=== PATIENT | female | born 1985 | race Caucasian/White ===

== ENCOUNTER 2024-12-01 12:27 | Inpatient (IN) | payer OTHER, SELFPAY ==
[2024-12-01] VITALS (14 sets, daily range): BP systolic 98–136; BP diastolic 60–91; BMI 22.2
[2024-12-01 08:54] LABS: % Basophils 0.1 % (0-2); % Eosinophils 0.1 % (0-6); % Immature Granulocytes 0.3 % (0-0.5); % Lymphocytes 12.4 % (20.5-51.1); % Monocytes 4.7 % (1.7-9.3); % Neutrophils 82.4 % (42.2-75.2); Absolute Lymphocytes 0.9 10^3/uL (1.2-3.4); Absolute Monocytes 0.3 10^3/uL (0.1-0.6); Hematocrit 39.3 % (37.0-47.0); Mean Corp Hgb Conc. 33.1 g/dL (33.0-37.0); Mean Corpuscular Hgb 29.7 pg (27.0-31.0); Mean Corpuscular Volume 89.7 fL (81.0-99.0); Mean Platelet Volume 10.4 fL (7.4-10.4); Nucleated Red Blood Cells % 0 %; Platelet Count 178 10^3/uL (130-400); Red Blood Cell Count 4.38 10^6/uL (4.20-5.40); Red Cell Dist. Width 12.7 % (11.5-14.5); White Blood Cell Count 7.3 10^3/uL (4.8-10.8)
[2024-12-01 09:09] LABS: HCG, Serum Qualitative Screen Negative
[2024-12-01 09:12] LABS: ALT (SGPT) 23 U/L (0-35); AST (SGOT) 31 U/L (14-36); Albumin 4.4 g/dl (3.5-5.0); Alkaline Phosphatase 55 U/L (38-126); Blood Urea Nitrogen 10 mg/dl (7-17); Carbon Dioxide 26 mmol/L (22-30); Chloride 103 mmol/L (98-107); Glucose 115 mg/dl (70-99); Potassium 3.9 mmol/L (3.5-5.1); Sodium 137 mmol/L (135-145); Total Bilirubin 0.5 mg/dl (0.2-1.3); Total Protein 7.2 g/dl (6.3-8.2); eGFR > 60.00
--- NOTE | 2024-12-01 09:17 | ED.GENMED ---
History of Present Illness
General
Chief Complaint: Chest Pain
Time Seen by Provider: 12/01/24 09:00
History of Present Illness
History of Present Illness:
Patient is a 39-year-old woman who is otherwise healthy presenting to the emergency department chest pain. Patient states that she woke up at 4 AM with chest tightness that she thought was a muscular pain and she needed to stretch out her chest.
She was laying when it occurred and sat up in bed to help stretch the chest. She then developed some dizziness nausea and a small amount of emesis. She states that her symptoms resolved and she called her primary care doctor who told her to come
to the emergency department for further evaluation. She denies any history of exertional chest pain or chest pain in general. No family history of cardiac disease. She does not smoke or vape. No history of high blood pressure cholesterol
diabetes. Her last period was a week ago. She does have reflux though this does not feel similar. She does state that her whole household did have a stomach bug a few weeks ago
Phy Exam
Physical Exam
Physical Exam:
GENERAL: in no acute distress
HEENT: normocephalic, extraocular movements intact, moist oral mucosa
NECK: normal inspection
RESPIRATORY: no respiratory distress, clear to auscultation bilaterally
CARDIOVASCULAR: regular rate and rhythm, 2+ radial pulses
ABDOMEN/: soft, non-distended, non-tender to palpation, no rebound or guarding
EXTREMITIES: non-tender, no edema/swelling
NEUROLOGIC: awake and alert, moves all extremities
SKIN: warm
Scores
Heart Score for Chest Pain Patients
STEMI patient?: No
History: Slightly or Non-Suspicious
ECG: Normal
Age: </= 45 years
Risk Factors: No Risk Factors
Troponin: >/= 3 x Normal Limit
Heart Score for Chest Pain Patients: 2
Heart Score Risk: 2.5% MACE over next 6 weeks
Course
Orders/Labs/Results
Orders:
Orders
12/01/24 08:34
Electrocardiogram (*1) Urgent
Reason for Study: Chest Pain
EKG- Treatment ONCE
12/01/24 08:42
Test Result ONCE
12/01/24 08:45
Complete Blood Count/With Diff Urgent
Comprehensive Metabolic Panel Urgent
HCG, Serum Qualitative Screen Urgent
TSH Reflex To Free T4 Urgent
Troponin I Urgent
12/01/24 09:14
CR Chest - 2 Views Urgent
Comment:
Reason For Exam: chest pain
12/01/24 09:21
EKG- Treatment ONCE
12/01/24 09:42
PTT Urgent
Comment: Obtain baseline before beginning heparin infusion if not already collected
Aspirin Chewable [Low Strength Aspirin] 324 mg PO NOW STA
Heparin 4,000 units IV NOW STA
Pharmacy Request to Place See Dose Instructions PO NOW STA
Discontinue all Active Warfarin orders?: Yes
Nursing to Place Non Medication Order As Directed
Physician Order: PTT 6 hours after initial start of Heparin infusion
12/01/24 09:45
Heparin 97413 Units/250 ml 25,000 units in 250 ml IV PER PROTOCOL
Weight to be used for heparin protocol in kilograms (kg):: 70.1
Protocol:: Cardiac Tx/Acute Coronary
PTT Goal Range to be used:: PTT 73 to 111 seconds
Order type:: Initial
INITIAL Infusion Dose (UNITS/KG/hr) & then follow protocol:: 15 units/kg/hr
Infusion Dose in UNITS/hr & then follow protocol (UNITS/hr):: 1,050
INFUSION RATE in mL/hr & then follow protocol (mL/hr):: 10.5
PTT less than or equal to 64 seconds:: Increase rate by 200 units/hr (+ 2 mL/hr)
PTT 64.1 to 72.9 seconds:: Increase rate by 100 units/hr (+ 1 mL/hr)
PTT 73 to 111 seconds:: Target Range. No change in rate.
PTT 111.1 to 130.9 seconds:: Decrease rate by 100 units/hr (- 1 mL/hr)
PTT 131 to 199.9 seconds:: HOLD for 1 hr. Then decrease rate by 200 units/hr (- 2 mL/hr)
PTT greater than or equal to 200 seconds:: HOLD for 2 hrs & Notify Provider. Then decrease by 200 units/hr (-
2 mL/hr)
Lab follow-up:: Each change, PTT q6h until 2 consecutive are therapeutic. Then PTT
daily.
12/01/24 10:[address] See Dose Instructions IV DIRECTED
12/01/24 11:45
Electrocardiogram (*1) Urgent
Reason for Study: Chest Pain
Troponin I Urgent
Abnormal Lab Results
12/01/24
08:45
Absolute Lymphs (auto) 0.9 L 10^3/uL
(1.2-3.4)
Neutrophils % 82.4 H %
(42.2-75.2)
Lymphocytes % 12.4 L %
(20.5-51.1)
Glucose 115 H mg/dl
(70-99)
Troponin I 0.189 H* ng/ml
12/01/24 08:45
12/01/24 08:45
Vital Signs
Initial and Last Documented VS:
Initial Vital Signs
Temp Pulse Resp BP Pulse Ox
98.0 F 92 16 136/77 98
12/01/24 08:38 12/01/24 08:38 12/01/24 08:38 12/01/24 08:38 12/01/24 08:38
Last Documented Vital Signs
Temp Pulse Resp BP Pulse Ox
98.0 F 92 16 136/77 98
12/01/24 08:38 12/01/24 08:38 12/01/24 08:38 12/01/24 08:38 12/01/24 08:38
MDM/Problems Addressed
Differential Diagnosis Includes:
Patient is a 39-year-old woman presenting to the emergency department with chest pain that has since resolved. Vitals unremarkable and exam is reassuring. Unclear cause of patient's chest pain however could be ACS. Could be esophageal pathology.
History exam not consistent with PE or dissection or pericarditis. Will check blood work EKG and chest x-ray. Patient will need delta troponin.
*Critical Care Note
Total Time (30-74mins, 75-104mins- exclusive of procedures): 37
comment:
Critical care statement: A total of 37 minutes of critical care time was provided for this patient. This includes management of unstable vital signs, evaluation of the patient at bedside, reviewing the patient's pertinent medical records, ordering
and reviewing studies, arranging urgent treatment with development of a management plan, evaluating patient's response to treatment, frequent reassessment, and discussion with consultants. This time was separate from time utilized to perform the
aforementioned documented procedures.
Update Note
Update Note:
Chest x-ray per my interpretation with no widened mediastinum, no signs of pneumothorax or pneumonia.
Received a critical as patient's troponin is elevated at 0.189. On reassessment patient remains pain-free. Will give aspirin and start heparin drip. Discussed with frame hand (Dr Lindsey) who will evaluate patient. Discussed with hospitalist
accepted patient to their service
ED Attending Note
-
Portions of this chart may have been created with voice recognition software.� Occasional wrong word or��sound alike� substitutions may have occurred due to the inherent limitations of voice recognition software.
Discharge Plan
Departure
Patient Disposition: Admit
Date of Disposition: 12/01/24
Time of Disposition: 09:51
Presentation/result/management discussed w/ accepting MD/DO: Hospitalist
Discharge Problem:
Non-ST elevation IL (NSTEMI)
Referrals:
Cody Coburn CRNP [Family Provider] -
Interventions
Interventions:
*Risk Screen - Suicide Last Done: 12/01/24 08:38
*Neglect/Abuse Screening Last Done: 12/01/24 08:38
Discharge Date and Time
Print Language: ITALIAN
[2024-12-01 09:33] LABS: Troponin I 0.189 ng/ml
[2024-12-01] MEDS: LOW STRENGTH ASPIRIN 324 MG PO (10:17)
[2024-12-01 10:40] LABS: APTT 29.1 Sec (23.4-35.0)
--- NOTE | 2024-12-01 10:44 | CON.CAR ---
Consultation
Consultation Request
Date/Time Consultation Requested: 12/01/24
Date/Time Consultation Performed: 12/01/24
Requesting Provider: Dr. Grover
Performing Provider: Dr. Lindsey
Reason for Consultation: chest pain
Medical History
-
Chief Complaint: Chest pain
History of Present Illness:
I had the pleasure to meet your patient, Massiel Painter in ED room 24 after she presented at the behest of her family physician for evaluation of chest pain. Massiel is a 39-year-old female with a history of hypothyroidism diagnosed during a
on Synthroid replacement therapy. She does not have a history of Isi's or Graves' disease. She is otherwise relatively healthy without a history of hypertension, hyperlipidemia, diabetes/prediabetes/gestational diabetes, autoimmune
conditions, rheumatologic disorders thromboembolic disease and is a lifelong non-smoker. She is a P2002, both requiring IVF and complicated by severe preeclampsia with help features requiring delivery. She is a lifelong non-smoker. She
states her and her family had a GI illness which she feels that she has recovered. She denies upper respiratory symptoms, ongoing GI symptoms, fevers or rash. She denies extreme stress/emotional distress. She still has her menses and denies the
use of oral contraceptive pills and is not on fertility treatment. Family history negative for premature coronary artery disease, coronary artery disease, cardiomyopathy, arrhythmia, or sudden cardiac . Her father from esophageal
cancer. She woke up this morning around 4 AM with severe chest discomfort which felt like a band around her chest causing her to feel lightheaded and dizzy and felt extremely wiped out. She was also nauseous and had several dry heaves. Chest pain
lasted less than 30 minutes. The whole episode lasted about 45 minutes. She called her family physician who instructed her to come to the ER for evaluation. Currently she is feeling well and denies shortness of breath, palpitations,
lightheadedness, nausea, or abdominal pain. The chest pain she had earlier has resolved however she still has slight discomfort under her left shoulder. She denies increase of pain with cough, change position or deep inspiration.
Past medical history:
Hypothyroidism on replacement therapy, infertility requiring IVF, delivery x 2, pregnancies complicated by preeclampsia/help syndrome
Past Medical History
Past Medical History: Other (See HPI)
Past Surgical History: Other (See HPI)
Social History
Tobacco: Non-Smoker
Alcohol: None
Drug: None
Personal:
Living: With Family
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
Family History
Family History: Reviewed & Not Pertinent
Allergies / Home Medications
Allergy/AdvReac Type Severity Reaction Status Date / Time
No Known Allergies Allergy Verified 12/01/24 08:41
�Medication �Instructions �Recorded �Confirmed �Type
cholecalciferol (vitamin D3) 25 25 mcg PO DAILY 12/01/24 12/01/24 History
mcg (1,000 unit) tablet (Vitamin
D3)
cyanocobalamin (vitamin B-12) 1,000 mcg PO DAILY 12/01/24 12/01/24 History
1,000 mcg tablet
levothyroxine 75 mcg tablet 75 mcg PO DAILY 12/01/24 12/01/24 History
(Synthroid)
therapeutic multivitamin 1 tab PO DAILY 12/01/24 12/01/24 History
Review of Systems
-
History Source: Patient
All other systems: Negative unless noted
Constitutional: Sleep Disturbance
EENT: No Symptoms
Respiratory: No Symptoms
Cardiac: Chest Pain and Diaphoresis
Abdomen/GI: Nausea and Vomiting
Musculoskeletal: No Symptoms
Skin: Rash (She currently has an erythematous rash on her face, neck, chest and back which she states that she gets when she is nervous.)
Neurological: Dizzy and Weakness
Physical Exam
Vital Signs
Temp Pulse Resp BP Pulse Ox
98.0 F 92 16 136/77 98
12/01/24 08:38 12/01/24 08:38 12/01/24 08:38 12/01/24 08:38 12/01/24 08:38
Lab Results
12/01/24 08:45
12/01/24 08:45
Troponin I 0.189 ng/ml H* 12/01/24 08:45
Physical Exam
General: Well Developed, Well Nourished, No Apparent Distress and Comfortable
HEENT: Normocephalic, Anicteric and Moist Mucous Membranes
Respiratory: Clear
Cardiac: S1/S2 and Regular Rhythm; Negative Murmur, Rub, Peripheral Edema, Calf Tenderness or JVD
GI: Soft, Non Tender, Non Distended and Normal Bowel Sounds
Skin: Warm and Dry
Neuro: AO x 3 and Nonfocal/Grossly Intact
Psych: Calm
Impression / Plan
-
Impression:
Chest pain syndrome with elevated troponin, initial 0.189
Hypothyroidism
Recent viral GI illness
CXR: No acute cardiopulmonary abnormality
EKG sinus rhythm with poor R wave progression. No acute ischemic changes. Normal intervals
Plan:
Chest pain with abnormal cardiac troponins, unclear etiology
-Initial troponin 0.189
-Fortunately she is hemodynamically stable with mostly resolved symptoms and some residual left shoulder discomfort
-2D echocardiogram now
-Received aspirin 81 mg in the ED
-Blood pressure/heart rate slightly elevated, will give Lopressor 12.5 mg now
-Trend troponin
-Serial EKG
-Telemetry monitoring
-TSH within normal limits. test negative. LFTs within normal limits. Hemoglobin 13
-Pending 2D echocardiogram will decide further ischemic workup with possible left heart catheterization today
Hypothyroidism�TSH within normal limits on replacement therapy
Data Reviewed
-
EKG: Report Reviewed by me
Radiology: Report Reviewed by me
Labs: Labs Reviewed by me
[2024-12-01] MEDS: HEPARIN 25000 UNITS/250 ML IV (10:52)
[2024-12-01] MEDS: HEPARIN 4000 UNITS IV (10:54)
--- NOTE | 2024-12-01 12:48 | HPS.HSE ---
Family Physician
-
Family Physician: CAROLYN Ibrahim
Chief Complaint
-
chest pain
History of Present Illness
39 y/o F, hx of hypothyroidism presenting to ER with chest pain. Woke up at 4 AM today with severe chest discomfort which was band like around her chest causing her dizziness and lightheadedness. No association with deep inspiration or cough,
position. She felt wiped out. She had nausea and dry heaves. chest pain lasted 30 minutes at least. PCP instructed ER evaluation. At present reports some mild chest pain. no SOB, palpitations, no abd pain. No LE edema.
Seen by Cards in ER and planned for urgent cath today
Medical History
Past Medical History
Past Medical History: Reports Other (Hypothyroidism on replacement therapy, infertility requiring IVF, delivery x 2, pregnancies complicated by preeclampsia/help syndrome)
Past Surgical History: Reports None
Social History
Tobacco: Non-smoker
Alcohol: None
Drug: None
Personal:
Living: With Family
Employment: Employed
Family History
Family History: Not pertinent
Allergies / Home Medications
Allergies reflects when Allergies were last updated in [facility].
Home Medications with original date entered in [facility]
Allergy/Medication List:
Allergies
Allergy/AdvReac Type Severity Reaction Status Date / Time
No Known Allergies Allergy Verified 12/01/24 08:41
Home Medications
cholecalciferol (vitamin D3) 25 mcg (1,000 unit) tablet (Vitamin D3) 25 mcg PO DAILY 12/01/24
cyanocobalamin (vitamin B-12) 1,000 mcg tablet 1,000 mcg PO DAILY 12/01/24
levothyroxine 75 mcg tablet (Synthroid) 75 mcg PO DAILY 12/01/24
therapeutic multivitamin 1 tab PO DAILY 12/01/24
Review of Systems
-
A 12 point ROS was completed and negative except as noted: Yes
Physical Exam
Vital Signs
Vital Signs
Temp Pulse Resp BP Pulse Ox
98.0 F 88 13 117/91 100
12/01/24 08:38 12/01/24 11:00 12/01/24 11:00 12/01/24 10:01 12/01/24 11:00
Physical Exam
General: No Apparent Distress
HEENT: NormoCephalic and Anicteric
Respiratory: Clear; No Wheezes
Cardiac: S1/S2 and Regular Rhythm
GI: Non Distended
Neuro: AO x 3
Hematologic/Lymphatic: No Lymphadenopathy
Psych: Calm
Laboratory Results
-
12/01/24 08:45
12/01/24 08:45
Laboratory Results
APTT 29.1 Sec (23.4-35.0) 12/01/24 10:15
Total Bilirubin 0.5 mg/dl (0.2-1.3) 12/01/24 08:45
AST 31 U/L (14-36) 12/01/24 08:45
ALT 23 U/L (0-35) 12/01/24 08:45
Alkaline Phosphatase 55 U/L (38-126) 12/01/24 08:45
Troponin I 0.330 ng/ml H* D 12/01/24 12:01
Data Reviewed
-
Diagnostic Radiology: Report Reviewed by me
Lab Data: Labs Reviewed by me
Impression/Plan
-
Assessment:
acute chest pain
Troponin elevation, possible NSTEMI
- repeat trop .330
- serial EKG
- Echo pending
- continue ASA
- continue IV heparin - requires intensive monitoring of PTTs
- s/p Lopressor x 1
- Cath today
Hypothyroidism on replacement
DVT ppx: IV heparin
Code: Full
[2024-12-01 14:38] LABS: ACT-LR - POC 165 Seconds (116-155)
--- NOTE | 2024-12-01 16:31 | CM ---
spoke to pt in room, she is prev indep, lives with her husb in a 2 story home with 6 steps to enter. she denies any dc planning needs or dme's. plan is for dc to home when medically stable.
[2024-12-01] MEDS: TYLENOL 650 MG PO (16:52)
--- NOTE | 2024-12-01 17:15 | ITS.CL.CATH ---
[employer] Operator - Catheterization
Cardiac Catheterization
Procedure Report:
LEFT HEART CATHETERIZATION
Date of Procedure: December 01, 2024
Referring: Carri Lindsey
PROCEDURES:
1. Left heart catheterization, coronary angiogram.
2. Ultrasound-guided access
INDICATION: Concern for NSTEMI
ACCESS: Right radial artery, 6 Beninese sheath, under ultrasound guidance
Ultrasound was utilized for vascular access. The radial artery was visualized under ultrasound, and the vessel was patent and pulsatile. An image was stored permanently in the patient's medical record. Under direct ultrasound guidance, a 6 Beninese
sheath was inserted into the artery using a micropuncture kit through a modified Seldinger technique.
HEMODYNAMICS : (mmHg)
AO (s/d) : 107/68
LV (s/d) : 117/6
LVEDP : 19
CORONARY FINDINGS
DOMINANCE: Right
LEFT MAIN: Left main artery is a large-caliber vessel which gives rise to the left anterior descending artery and the left circumflex artery. Normal coronary artery.
LEFT ANTERIOR DESCENDING: The left anterior descending artery is a medium caliber vessel which gives rise to 1 major diagonal branch as it courses to the anterior interventricular groove towards the apex. Distal to apical LAD shows evidence of
spontaneous coronary artery dissection (SCAD), which is likely culprit of presenting ACS. Right to left collaterals to the apical LAD are noted.
CIRCUMFLEX: Left circumflex artery is a medium caliber vessel which gives rise to 1 major obtuse marginal branch and a left posterolateral branch, both of which are small to medium in caliber. There is minimal luminal irregularities.
RIGHT CORONARY ARTERY: The right coronary artery is a medium caliber, dominant vessel which gives rise to the right posterior descending artery and the right posterolateral system. Normal coronary artery. Right to left collaterals to the apical
LAD are noted.
SEDATION: 24 minutes of procedural sedation was utilized. An independent medical assistant prn was present to assist with and help manage the patient's level of consciousness and physiologic status.
RADIATION SUMMARY: Fluoro Time (min): 4.1, Dose (mGy): 143.87, DAP (Gy.cm2) : 13.44
Closure Device: Vascular band over right radial artery, 10 cc of air.
CONCLUSIONS
1. 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
2. Right to left collaterals are noted.
3. Elevated LVEDP at 19 mmHg
RECOMMENDATIONS
1. Daily baby aspirin along with beta-leslie. Monitor in the hospital for at least 24 to 48 hours for any recurrent symptoms
2. Aggressive management of cardiovascular risk factors.
3. Outpatient evaluation to rule out FMD.
4. Referral for outpatient cardiac rehab
Lucero Vasques MD, FACC, [facility]
[2024-12-01] MEDS: CRESTOR PO (18:30)
--- NOTE | 2024-12-01 18:58 | PTCARENOTE ---
Pt received post cardiac cath done via right radial artery. Radial band removed per protocol without problem, no sign of bleeding or hematoma. Pt c/o mild headache relieved with tylenol and 3/10 discomfort in her chest which she states feels like
heartburn. Pt states that she feels well overall. Telemetry shows sinus rhythm with one 8bt run of NSVT. Plan to monitor closely.
--- NOTE | 2024-12-01 21:19 | PTCARENOTE ---
Patient received at change of shift resting in the bed. Right radial cath site with gauze and tegaderm C/D/I, some ecchymosis noted, no evidence of hematoma. Sinus rhythm on telemetry with occasional PVCs. Patient states she has occasional
intermittent chest discomfort but states she has no pain at this time. She states that she overall feels better than when she was first admitted. Patient voided without difficulty. Oxygen saturation 96-97% on room air. Plan of care discussed. Call
oconnor within reach. Care ongoing.
[2024-12-02 03:23] VITALS: BP 109/71
[2024-12-02 04:13] LABS: Hematocrit 35.4 % (37.0-47.0); Hemoglobin 11.6 g/dL (12.0-16.0); Mean Corp Hgb Conc. 32.8 g/dL (33.0-37.0); Mean Corpuscular Hgb 29.6 pg (27.0-31.0); Mean Corpuscular Volume 90.3 fL (81.0-99.0); Mean Platelet Volume 10.9 fL (7.4-10.4); Platelet Count 160 10^3/uL (130-400); Red Blood Cell Count 3.92 10^6/uL (4.20-5.40); Red Cell Dist. Width 13.1 % (11.5-14.5); White Blood Cell Count 3.8 10^3/uL (4.8-10.8)
[2024-12-02 04:33] LABS: Blood Urea Nitrogen 8 mg/dl (7-17); Calcium 8.6 mg/dl (8.4-10.2); Carbon Dioxide 24 mmol/L (22-30); Chloride 107 mmol/L (98-107); Estimated Creatinine Clearance > 125 ml/min; Glucose 96 mg/dl (70-99); HDL Cholesterol 34 mg/dl; LDL Cholesterol, Calculated 83 mg/dl; Potassium 3.8 mmol/L (3.5-5.1); Sodium 138 mmol/L (135-145); Total Cholesterol 133 mg/dl (50-199); Triglyceride 84 mg/dl (10-149); Very Low Density Lipoprotein 16 mg/dl (0-30); eGFR > 60.00
[2024-12-02] MEDS: SYNTHROID 75 MCG PO (06:19)
[2024-12-02] MEDS: TYLENOL 650 MG PO (06:21)
[2024-12-02 06:46] VITALS: BP 100/65
--- NOTE | 2024-12-02 07:39 | W.PN.CARDCBS ---
Addendum entered and electronically signed by Ela Mendosa MD 12/02/24 11:43:
I saw and examined the patient.
The [facility]'s note was reviewed and I agree with the note.
Comment: Patient walking the hallways with very mild chest sensation. Admitted with non-Q wave myocardial infarction in the setting of SCAD (normal left ventricular ejection fraction). We reviewed cardiac catheterization with patient and her
mother, reviewed all medications. We reviewed outpatient evaluation for fibromuscular dysplasia and need for cardiac rehab. Telemetry with 1 asymptomatic short episode of of AVIR last night.
-Cardiac catheterization patient found to have SCAD involving the distal to apical LAD that is being medically managed.
-Outpatient CT full body to look for fibromuscular dysplasia. No known FH of any fibromuscular conditions
-New to Toprol XL and given increased heart rate as long as blood pressure tolerates increase dose to 37.5 mg daily.
-New to aspirin 81 mg daily
-LDL 83 and new to Crestor 20 mg daily
-Patient with known history of hypothyroidism and previous diagnosis of Graves' disease, TSH is normal and outpatient dose of Synthroid 75 mcg daily was continued
-Tele stable
-Importance of cardiac rehab reiterated
If remains stable discharge 12/03/2024
Original Note:
Today's Communication / Plan
-
New diagnosis of SCAD, tolerating medical therapy, will need outpatient CT to exclude FMD
Possible d/c to home if remains pain free
52 min in face to face and coordination of care
Impression / Plan
-
PCP: Temi WONG
Card: None prior to admission, seen initially by Dr. Lindsey
Impression:
ACS on admission 12/01/24
Type 2 GA, peak Troponin 1.4
SCAD involving distal to apical LAD seen on cardiac cath 12/01/2024
Hypothyroidism
Recent viral GI illness
Echo 12/01/2024: EF 70%, no significant valve disease, normal aortic root and proximal ascending aorta size, interatrial septum appears intact by color flow Doppler
Plan:
-Patient came to ER with CP and troponin peaked at 1.4 concerning for ACS. During cardiac catheterization patient found to have SCAD involving the distal to apical LAD that is being medically managed.
-Patient will need outpatient CT full body to look for fibromuscular dysplasia. No known FH of any fibromuscular conditions
-Patient is not taking any hormonal therapies
-New to Toprol XL 25 mg daily. HR 79 BP 100/65, but denies feeling lightheaded or dizzy
-New to aspirin 81 mg daily
-LDL 83 and new to Crestor 20 mg daily
-Patient with known history of hypothyroidism and previous diagnosis of Graves' disease, TSH is normal and outpatient dose of Synthroid 75 mcg daily was continued
-Tele reviewed by me 12/02/24 and no arrhythmia
-Possible discharge to home 12/02/2024
Progress Note - Kit Planner
Subjective
Date of Service: December 02, 2024
No chest pain, has a SMITH and has missed her morning coffee, but it's on the way now
Objective
Labs:
12/02/24 03:40
12/02/24 03:40
Labs
Hgb 11.6 g/dL (12.0-16.0) L 12/02/24 03:40
Hct 35.4 % (37.0-47.0) L 12/02/24 03:40
Plt Count 160 10^3/uL (130-400) 12/02/24 03:40
APTT Cancelled 12/01/24 16:50
Sodium 138 mmol/L (135-145) 12/02/24 03:40
Potassium 3.8 mmol/L (3.5-5.1) 12/02/24 03:40
BUN 8 mg/dl (7-17) 12/02/24 03:40
Creatinine 0.6 mg/dL (0.6-1.0) 12/02/24 03:40
Glucose 96 mg/dl (70-99) 12/02/24 03:40
Troponins
12/01/24 12/01/24 12/01/24
08:45 12:01 20:03
Troponin I 0.189 H* 0.330 H* D 1.400 H*
12/02/24
03:40
Troponin I 1.290 H*
Vital Signs and I&O:
Vital Signs
Temp Pulse Resp BP Pulse Ox
97.8 F 71 15 109/71 98
12/02/24 03:26 12/02/24 03:26 12/02/24 03:26 12/02/24 03:23 12/02/24 03:26
Vital Signs
Temp Pulse Resp BP Pulse Ox
97.8 F 71 15 109/71 98
12/02/24 03:26 12/02/24 03:26 12/02/24 03:26 12/02/24 03:23 12/02/24 03:26
Intake & Output
11/30/24 12/01/24 12/02/24 12/03/24
06:59 06:59 06:59 06:59
Intake Total 1340 / 1340
Balance 1340 / 1340
Physical Exam
Physical Exam
GEN: NAD. AAOx3
HEENT: EOMI, MMM
LUNGS: RA. No audible wheeze
CV: SR on tele. Reg, S1/S2, no murmur
ABD: soft, BS+, NT, ND
EXT: Right radial without hematoma or ecchymosis. No edema B/L
NEURO: Gross non-focal
SKIN: Warm, dry and pink. No rash
[2024-12-02 10:54] VITALS: BP 139/89
[2024-12-02] MEDS: TOPROL XL 37.5 MG PO (10:58)
[2024-12-02] MEDS: ASPIR LOW (ENTERIC COATED) 81 MG PO (10:58)
--- NOTE | 2024-12-02 13:57 | W.PN.HOSP.TC ---
Today's Communication/Plan
-
monitor chest pain symptoms
monitor tele
Assessment / Plan
Assessment / Plan
Assessment:
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
type 2 [place]
- trop peaked 1.400
- s/p cath 12/01
- continue ASA
- continue BB - titrated today
- continue statin
- OP fibromuscular dysplasia workup
- cardiac rehab
- follow [facility] recs
Hypothyroidism on replacement
brief AIVR on tele
DVT ppx: low risk, ambulation
Code: Full
Anticipated Discharge: Within 24 hours
Subjective/Interval History
-
Date of Service: December 02, 2024
some mild chest discomfort with ambulation earlier (before AM [employer])
currently chest pain free, ambulating with family in halls
Objective Data
-
Labs:
Laboratory Results
12/02/24
03:40
WBC 3.8 L
Hgb 11.6 L
Hct 35.4 L
Plt Count 160
Sodium 138
Potassium 3.8
Chloride 107
Carbon Dioxide 24
BUN 8
Creatinine 0.6
Glucose 96
Calcium 8.6
Vital Signs:
Vital Signs
Temp Pulse Resp BP Pulse Ox
98.3 F 87 18 139/89 100
12/02/24 10:56 12/02/24 11:00 12/02/24 10:56 12/02/24 10:54 12/02/24 10:56
I&O
12/01/24 12/02/24 12/03/24
06:59 06:59 06:59
Intake Total 1340 / 1340
Balance 1340 / 1340
Physical Exam
-
General: No Apparent Distress
HEENT: Normocephalic and Atraumatic
Cardiac: Regular Rhythm
GI: Soft
Genito-urinary: No Costovertebral Tender
Neuro: AO x 3
Hematologic / Lymphatic: No Lymphadenopathy
Psych: Calm
Data Reviewed
-
Total Time Spent with Patient (in minutes): 41
Labs: Labs Reviewed by me
[2024-12-02 15:30] VITALS: BP 117/79
[2024-12-02] MEDS: CRESTOR 20 MG PO (18:09)
[2024-12-02 18:36] VITALS: BP 109/70
--- NOTE | 2024-12-02 21:12 | PTCARENOTE ---
Patient received at change of shift resting in the bed. Patient presently denies chest pain, denies feeling lightheaded or dizzy. Sinus rhythm on telemetry. Oxygen saturation 97-98% on room air. Ambulating independently. Right radial puncture with
gauze and tegaderm C/D/I, ecchymosis noted but the surrounding area is soft to palpation. Discussed purpose and side effects of beta blockers, statins, and aspirin. Plan of care discussed with patient. Call oconnor within reach. Care ongoing.
[2024-12-02 22:51] VITALS: BP 95/59
[2024-12-03] VITALS (10 sets, daily range): BP systolic 101–118; BP diastolic 65–91
[2024-12-03 01:38] LABS: Hemoglobin 12.5 g/dL (12.0-16.0); Mean Corp Hgb Conc. 33.8 g/dL (33.0-37.0); Mean Corpuscular Volume 88.7 fL (81.0-99.0); Mean Platelet Volume 10.6 fL (7.4-10.4); Platelet Count 175 10^3/uL (130-400); Red Blood Cell Count 4.17 10^6/uL (4.20-5.40); Red Cell Dist. Width 12.9 % (11.5-14.5); White Blood Cell Count 4.6 10^3/uL (4.8-10.8)
--- NOTE | 2024-12-03 02:04 | W.PN.UPDATE ---
Update Note
Progress Note Update
Asked by RN to evaluate patient for 'weird' sensation in her chest radiating down the left arm and around to the left shoulder. She said her left hand has decreased sensation. No n/v. Pt stated it was not pain but described as weird tightness. BP
114/82, HR 60-70's, pulsox 99 on room air. When speaking with patient she described new left shoulder tightness and aching that is radiating down her left arm. She described her left arm as feeling heavy and numb.
TT Dr. Madhu Mendosa, who reviewed EKG. Troponin ordered. To advise if Troponin is rising compared to her last troponin. Also ordered repeat troponin and EKG for 6 am.
Patient states feeling is getting better. Ordered lidocaine patient in case muscular skeletal pain.
[2024-12-03 02:05] LABS: Blood Urea Nitrogen 11 mg/dl (7-17); Calcium 9.2 mg/dl (8.4-10.2); Carbon Dioxide 23 mmol/L (22-30); Chloride 103 mmol/L (98-107); Estimated Creatinine Clearance > 125 ml/min; Glucose 92 mg/dl (70-99); Potassium 4.1 mmol/L (3.5-5.1); Sodium 137 mmol/L (135-145); eGFR > 60.00
[2024-12-03] MEDS: LIDOCAINE 4% PATCH 1 PATCH TOPICAL (02:24)
[2024-12-03 02:29] LABS: Troponin I 0.591 ng/ml
--- NOTE | 2024-12-03 02:32 | PTCARENOTE ---
At approximately 0110 the patient alerted staff that she had a 'weird' feeling in her chest, pressure like in nature, that radiated to her left shoulder and down her left arm. She reported altered sensation in her left hand. These symptoms had
started about an hour ago and woke the patient from sleep. Radial pulse palpable, capillary refill <3 seconds. An EKG was completed. BP 114/82, HR in the 60s-70s, temp 98.0, O2 sat on RA 99-100%. House MARIANNA Shelton was notified and came to the bedside
to evaluate the patient. Labs were ordered and drawn. The patient denies N/V, denies headache. Right radial puncture site remains C/D/I. Cardiology bus driver/monitor physician, Dr. Mendosa, was notified. Plan for repeat EKG and troponin as ordered.
Discussed with patient notifying staff immediately for worsening or changing symptoms. Care ongoing.
[2024-12-03] MEDS: SYNTHROID 75 MCG PO (05:52)
[2024-12-03 06:55] LABS: Troponin I 0.561 ng/ml
[2024-12-03] MEDS: TOPROL XL 37.5 MG PO (08:48)
[2024-12-03] MEDS: LIDOCAINE 4% PATCH TOPICAL (08:48)
[2024-12-03] MEDS: ASPIR LOW (ENTERIC COATED) 81 MG PO (08:48)
--- NOTE | 2024-12-03 09:29 | W.PN.CARDCBS ---
Today's Communication / Plan
-
Stable for discharge
Continue current medications
No further anginal symptoms
Telemetry stable
Follow-up arranged
Impression / Plan
-
PCP: Temi WONG
Card: None prior to admission, seen initially by Dr. Lindsey
Impression:
ACS on admission 12/01/24
Type 2 [place], peak Troponin 1.4
SCAD involving distal to apical LAD seen on cardiac cath 12/01/2024
Hypothyroidism
Recent viral GI illness
Echo 12/01/2024: EF 70%, no significant valve disease, normal aortic root and proximal ascending aorta size, interatrial septum appears intact by color flow Doppler
Plan:
Last night shoulder and left-sided neck pain likely musculoskeletal. EKGs reviewed x 2 without acute abnormality. Troponins continue to downtrend. She is feeling better this morning. No chest discomfort or recurrence of original symptoms.
-Initially patient came to ER with CP and troponin peaked at 1.4 consistent with ACS. Cardiac catheterization consistent with SCAD involving the distal to apical LAD that is being medically managed.
-Patient will need outpatient CT full body to look for fibromuscular dysplasia. No known FH of any fibromuscular conditions
-She also had sinus tachycardia which has improved on beta-leslie. Continue Toprol XL 25 mg daily. Continue good hydration and care with changing position.
-81 mg aspirin had been started. Continue.
-LDL 83 and new to Crestor 20 mg daily
-Patient with known history of hypothyroidism and previous diagnosis of Graves' disease, TSH is normal and outpatient dose of Synthroid 75 mcg daily was continued
-Tele reviewed and stable
-Cardiac rehab as an outpatient
All questions answered
Stable for discharge home with follow-up noted. I have communicated with primary service.
Progress Note - Folder Seamer Automatic
Subjective
Date of Service: December 03, 2024
Upper neck/trapezius pain last night now feeling better. Denies chest pain.
Objective
Labs:
03/16/25 01:32
12/03/24 01:32
Labs
Hgb 12.5 g/dL (12.0-16.0) 12/03/24 01:32
Hct 37.0 % (37.0-47.0) 12/03/24 01:32
Plt Count 175 10^3/uL (130-400) 12/03/24 01:32
APTT Cancelled 12/01/24 16:50
Sodium 137 mmol/L (135-145) 12/03/24 01:32
Potassium 4.1 mmol/L (3.5-5.1) 12/03/24 01:32
BUN 11 mg/dl (7-17) 12/03/24 01:32
Creatinine 0.6 mg/dL (0.6-1.0) 12/03/24 01:32
Glucose 92 mg/dl (70-99) 12/03/24 01:32
Troponins
12/01/24 12/01/24 12/01/24
08:45 12:01 20:03
Troponin I 0.189 H* 0.330 H* D 1.400 H*
12/02/24 12/02/24 12/03/24
03:40 12:00 01:32
Troponin I 1.290 H* Cancelled 0.591 H*
12/03/24
06:00
Troponin I 0.561 H*
Vital Signs and I&O:
Vital Signs
Temp Pulse Resp BP Pulse Ox
98.1 F 66 20 109/73 98
12/03/24 06:57 12/03/24 05:00 12/03/24 06:57 12/03/24 02:45 12/03/24 08:00
Vital Signs
Temp Pulse Resp BP Pulse Ox
98.1 F 66 20 109/73 98
12/03/24 06:57 12/03/24 05:00 12/03/24 06:57 12/03/24 02:45 12/03/24 08:00
Intake & Output
12/01/24 12/02/24 12/03/24 12/04/24
06:59 06:59 06:59 06:59
Intake Total 1340 / 1340 720 / 720
Balance 1340 / 1340 720 / 720
Physical Exam
Physical Exam
General: Well developed, well nourished in NAD.
Heart: Non displaced PMI, RRR, no murmurs, No S3, S4, no rubs.
Lungs: Clear to auscultation bilaterally, no wheeze, rhonchi, rubs bilaterally,
Extremities: No clubbing, cyanosis or edema bilaterally.
Neuro: Grossly nonfocal, awake, alert
--- NOTE | 2024-12-03 10:38 | W.PN.HOSP.TC ---
Today's Communication/Plan
-
dc home today
Assessment / Plan
Assessment / Plan
Assessment:
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
type 2 [place]
- trop peaked 1.400
- s/p cath 12/01
- continue ASA/BB/Statin
- OP fibromuscular dysplasia workup
- cardiac rehab
- follow up [facility] OP
L shoulder/arm muscular discomfort
Hypothyroidism on replacement
brief AIVR on tele
DVT ppx: low risk, ambulation
Code: Full
More than 30 minutes spent in discharge including
Final examination of the patient
Summarizing hospital stay
Instructions for continuing care to all relevant caregivers
Preparation of discharge records, prescriptions, and referral forms
Total time spent (in minutes):41
Anticipated Discharge: Today
Subjective/Interval History
-
Date of Service: December 03, 2024
resting comfortably, no complaints
Objective Data
-
Labs:
Laboratory Results
12/03/24
01:32
WBC 4.6 L
Hgb 12.5
Hct 37.0
Plt Count 175
Sodium 137
Potassium 4.1
Chloride 103
Carbon Dioxide 23
BUN 11
Creatinine 0.6
Glucose 92
Calcium 9.2
Vital Signs:
Vital Signs
Temp Pulse Resp BP Pulse Ox
98.1 F 68 20 103/68 98
12/03/24 06:57 12/03/24 07:00 12/03/24 06:57 12/03/24 06:57 12/03/24 08:00
I&O
12/02/24 12/03/24 12/04/24
06:59 06:59 06:59
Intake Total 1340 / 1340 720 / 720
Balance 1340 / 1340 720 / 720
Physical Exam
-
General: No Apparent Distress
HEENT: Normocephalic and Atraumatic
Respiratory: Negative Wheezes or Rales
Cardiac: Regular Rhythm and S1/S2
GI: Soft and Nontender
Genito-urinary: No Costovertebral Tender
Neuro: AO x 3
Psych: Calm
Data Reviewed
-
Total Time Spent with Patient (in minutes): 41
Labs: Labs Reviewed by me
--- NOTE | 2024-12-03 10:40 | W.DS.TRANS ---
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
-
Discharge Instructions:
Discharge Diagnosis/Procedures NSTEMI, Spontaneous coronary artery dissection,
Cardiac cath 12/01
Diet Low Cholesterol
Activity No strenuous activity
Driving Restrictions No driving for 24 hours
Other Services Cardiac Rehab
Instructions:
Stand-Alone Forms: DC Instructions- Cath/EP Lab
Changes to Home Medications: No
Discharge Medications:
DC Medications w/original date entered in [facility]
cholecalciferol (vitamin D3) 25 mcg (1,000 unit) tablet (Vitamin D3) 25 mcg PO DAILY 12/01/24
cyanocobalamin (vitamin B-12) 1,000 mcg tablet 1,000 mcg PO DAILY 12/01/24
levothyroxine 75 mcg tablet (Synthroid) 75 mcg PO DAILY 12/01/24
therapeutic multivitamin 1 tab PO DAILY 12/01/24
aspirin 81 mg tablet,delayed release 81 mg PO DAILY Heart disease/condition #30 tabs 12/02/24
metoprolol succinate 25 mg tablet,extended release 24 hr (Toprol XL) 37.5 mg (1.5 x 25 mg) PO DAILY Heart disease/condition #45 tabs 12/02/24
rosuvastatin 20 mg tablet 20 mg PO QPM High cholesterol #30 tabs 12/02/24
Home Medication Changes
Pending Results: No
Total time spent discharging patient (in min): 41
--- NOTE | 2024-12-03 12:01 | PTCARENOTE ---
Pt received this am with no c/o of any chest pain or sob. OOB ad adan, ambulating in the hallway. SR, rate in the 70's.
== END 2024-12-03 12:24 | disposition home or self-care (01) | DRG 282 ==
LOC: IVU 12:27
PROVIDERS: Internal Medicine Interventional Cardiology; Nurse Practitioner Adult Health; Nurse Practitioner Family; Student in an Organized Health Care Education/Training Program; ADMITTING PHYSICIAN Internal Medicine; CONSULT PHYSICIAN Internal Medicine Cardiovascular Disease; EMERGENCY PHYSICIAN Student in an Organized Health Care Education/Training Program; FAMILY PHYSICIAN Nurse Practitioner Family
PROC: 4A023N7 Measurement of Cardiac Sampling and Pressure, Left Heart, Percutaneous Approach (ICD-10-PCS; 2024-12-01)
PROC: B2151ZZ Fluoroscopy of Left Heart using Low Osmolar Contrast (ICD-10-PCS; 2024-12-01)
PROC: B2111ZZ Fluoroscopy of Multiple Coronary Arteries using Low Osmolar Contrast (ICD-10-PCS; 2024-12-01)
DX: I25.42 Coronary artery dissection (principal); I21.A1 Myocardial infarction type 2; E03.9 Hypothyroidism, unspecified; M79.18 Myalgia, other site; Z79.899 Other long term (current) drug therapy; K21.9 Gastro-esophageal reflux disease without esophagitis
CPT/HCPCS: 71046; 76937; 80048; 80053; 80061; 84443; 84484; 84703; 85025; 85027; 85347; 85730; 93005; 93458; 96365; 96366; 99152; 99153; 99291; C1769; C1894; Q9967

== ENCOUNTER 2025-01-15 10:07 | Outpatient (RCR) | payer OTHER, SELFPAY | END 2025-01-15 23:59 | disposition home or self-care (01) | LOC: CRHB 10:07 | PROVIDERS: ATTENDING PHYSICIAN Internal Medicine Cardiovascular Disease | DX: I21.4 Non-ST elevation (NSTEMI) myocardial infarction (principal); I25.2 Old myocardial infarction (principal); I25.111 Atherosclerotic heart disease of native coronary artery with angina pectoris with documented spasm; I25.42 Coronary artery dissection | CPT/HCPCS: 93797; 93798; G0422; G0423 ==

== ENCOUNTER → 2025-01-26 09:47 | Outpatient (REF) | payer OTHER, SELFPAY | LOC: RAD 09:47 | PROVIDERS: ATTENDING PHYSICIAN Student in an Organized Health Care Education/Training Program; FAMILY PHYSICIAN Nurse Practitioner Family | DX: I25.42 Coronary artery dissection (principal) | CPT/HCPCS: 70496; 70498; Q9967 ==

== ENCOUNTER → 2025-02-02 09:48 | Outpatient (REF) | payer OTHER, SELFPAY | LOC: WDC 09:48 | PROVIDERS: ATTENDING PHYSICIAN Obstetrics & Gynecology; FAMILY PHYSICIAN Nurse Practitioner Family | DX: R92.2 Inconclusive mammogram (principal) | CPT/HCPCS: 74174; 76641; 93306; Q9967 ==